=== PATIENT | female | born 1960 | race Caucasian/White ===

== ENCOUNTER 2018-08-11 17:38 | Emergency (ER) | payer OTHER, SELFPAY ==
[2018-08-11 17:44] VITALS: BP 149/89; PULSE 85; RESP 18; TEMP 36.2; O2SAT 94; BMI 31.4
[2018-08-11 19:15] VITALS: BP 122/76; PULSE 68; RESP 16; O2SAT 99
--- NOTE | 2018-08-11 19:23 | PC.NURSE ---
Pt reports at work touch a piece of clothing with cat hair on uniform. Reports feeling instantly itchy and sob breath. Reports a hive showed up under left eye. Then reports her eyes started to burn and itch and so did the tip of her ears. She states becoming flushed and sweaty. Tried to wash off her hands and face. Then decide to use her epi pen.
[2018-08-11] MEDS: predniSONE 20 MG TABLET 60 MG PO (19:50)
[2018-08-11] MEDS: diphenhydrAMINE 25 MG TABLET 50 MG PO (19:51)
--- NOTE | 2018-08-11 20:16 | ED.ALLEREA ---
HPI - Allergic Reaction <IRA Baugh-BC - Last Filed: 08/11/18 21:20> General Chief complaint: Allergic Reaction Stated complaint: Self administer Epi, @ approx 16:45 Time Seen by Provider: 08/11/18 19:28 Source: patient and family Mode of arrival: ambulatory Limitations: no limitations History of Present Illness HPI narrative: The patient is a 58-year-old female nonsmoker with history of multiple allergies who presents after using her EpiPen earlier today. She states that she was exposed to iodine through cat urine on clothing at work. She felt ?prickly under her skin,itching and burning of her eyes. She felt like she cannot breathe very well. She denies any swelling of her lips base for tongue. She administered her EpiPen into her right thigh at 4:45 p.m. she has not taken any Benadryl or anything else since. She denies any current shortness of breath. She states she had a hive, but it went away she presents requesting a refill of her EpiPen. Related Data Home Medications Medication Instructions Recorded Confirmed EpinephrineSnap-V 0.3 mg IM PRN PRN 08/11/18 08/11/18 Previous Rx's Medication Instructions Recorded prednisone 50 mg PO DAILY #5 tab 08/11/18 Allergies Allergy/AdvReac Type Severity Reaction Status Date / Time cat dander Allergy Severe Hives Verified 08/11/18 17:52 Iodine and Iodide Containing Allergy Severe Anaphylaxis Verified 08/11/18 17:52 Produc shellfish derived Allergy Severe Anaphylaxis Verified 08/11/18 17:52 Review of Systems <MARÍA Baugh - Last Filed: 08/11/18 21:20> Constitutional Denies body ache(s), Denies chills, Denies fatigue, Denies fever(s) and Denies headache(s) Eyes Reports as per HPI ENT Ears, Nose, Mouth, and Throat: Reports as per HPI and Denies headache(s) Cardiovascular Denies chest pain, Denies syncope, Denies rapid heart rate, Denies edema, Denies radiating jaw, neck or arm pain and Denies palpitations Respiratory Reports as per HPI Gastrointestinal Gastrointestinal: Denies abdominal pain, Denies bloating, Denies constipation, Denies cramping, Denies dyspepsia, Denies diarrhea, Denies nausea and Denies vomiting Genitourinary Denies urinary frequency Musculoskeletal Reports system reviewed and no additional complaints, except as docu and Reports as per HPI Integumentary/Breasts Reports as per HPI Neurologic Denies syncope and Denies headache(s) Endocrine Denies fatigue and Denies palpitations PFSH <MARÍA Baugh - Last Filed: 08/11/18 21:20> Medical History (Updated 08/11/18 @ 21:18 by MARÍA Baugh) Palpitations (Acute) Social History Smoking Status: Never smoker Social History Smoking Status: Never smoker Exam <MARÍA Baugh - Last Filed: 08/11/18 21:20> Initial Vital Signs Initial Vital Signs: Vital Signs Temperature 97.1 F L 08/11/18 17:44 Pulse Rate 85 08/11/18 17:44 Respiratory Rate 18 08/11/18 17:44 Blood Pressure 149/89 H 08/11/18 17:44 Pulse Oximetry 94 08/11/18 17:44 Const General: cooperative and well developed Nutritional Appearance: well nourished Orientation: alert, awake, oriented x3 and not confused [facility] Head: normocephalic and atraumatic Ears: external ears normal and TM's normal bilaterally Nose: external nose normal and No nasal discharge Face and sinus: sinuses nontender, face symmetric, no sinus tenderness and No dry mucous membranes Mouth: oral mucosae normal, lip normal, tongue normal, No oropharynx normal, moist mucous membranes, No mucous membranes abnormal, No drooling, No muffled voice and No tongue abnormal Teeth and gingiva: dentition normal Throat: tonsils normal and uvula midline Neck Neck: normal visual inspection Resp Effort & Inspection: normal respiratory effort, able to speak in complete sentences, normal respiratory pattern, no audible wheezes, no cough, respiratory effort not decreased, no grunting, not labored, no nasal flaring, no pursed lip breathing, no respiratory distress, no retractions and no tracheal deviation Auscultation: clear to auscultation bilaterally, no crackles, no rales, no rhonchi and no wheezes Cardio Rhythm: regular rhythm GI Palpation: soft Auscultation: normal bowel sounds Skin General: no rashes or lesions noted Lesions: no lesions Rashes: no rashes Trauma: no lacerations or abrasions Wounds: no wounds Neuro General: alert, oriented x3, gait normal and no focal motor deficits Speech: speech normal <Levy Thomas DO - Last Filed: 08/12/18 01:08> Initial Vital Signs Initial Vital Signs: Vital Signs Temperature 97.1 F L 08/11/18 17:44 Pulse Rate 85 08/11/18 17:44 Respiratory Rate 18 08/11/18 17:44 Blood Pressure 149/89 H 08/11/18 17:44 Pulse Oximetry 94 08/11/18 17:44 Course <MARÍA Bauhg - Last Filed: 08/11/18 21:20> Orders Ordered: Discontinued Medications Diphenhydramine HCl (Benadryl) 50 mg PO NOW ONE Stop: 08/11/18 19:37 Last Admin: 08/11/18 19:51 Dose: 50 mg Prednisone (Deltasone) 60 mg PO NOW ONE Stop: 08/11/18 19:37 Last Admin: 08/11/18 19:50 Dose: 60 mg Vital Signs - 8 hr 08/11/18 17:44 08/11/18 19:15 08/11/18 20:54 Temperature 97.1 F L Pulse Rate 85 68 66 Respiratory Rate 18 16 15 Blood Pressure 149/89 H 118/78 Blood Pressure [Right Arm] 122/76 Pulse Oximetry 94 99 98 <Levy Thomas DO - Last Filed: 08/12/18 01:08> Orders Ordered: Discontinued Medications Diphenhydramine HCl (Benadryl) 50 mg PO NOW ONE Stop: 08/11/18 19:37 Last Admin: 08/11/18 19:51 Dose: 50 mg Prednisone (Deltasone) 60 mg PO NOW ONE Stop: 08/11/18 19:37 Last Admin: 08/11/18 19:50 Dose: 60 mg Vital Signs - 8 hr 08/11/18 17:44 08/11/18 19:15 08/11/18 20:54 Temperature 97.1 F L Pulse Rate 85 68 66 Respiratory Rate 18 16 15 Blood Pressure 149/89 H 118/78 Blood Pressure [Right Arm] 122/76 Pulse Oximetry 94 99 98 MDM - Allergic Reaction <MARÍA Baugh - Last Filed: 05/03/19 21:20> MDM Narrative Medical decision making narrative: The patient is a 58-year-old female who presents with chief complaint of allergic reaction. She self administered an EpiPen. She has no abnormalities on exam, is hemodynamically stable. She is monitored and given Benadryl as well as prednisone. I did discharge her with a refill of her EpiPen as well as a burst of prednisone. I encouraged her to follow up with her primary care provider if needed. Crutches to come back to emergency department for any acute concerns such as shortness of breath, or pharyngeal swelling etc. Patient has no questions or concerns upon discharge. Discharge Plan Departure Patient Disposition: Home Clinical Impression: Allergic reaction Qualifiers: Encounter type: initial encounter Qualified Code(s): T78.40XA - Allergy, unspecified, initial encounter Discharge Date/Time: 08/11/18 20:55 Interventions: ED Discharge Assessment Last Done: 08/11/18 20:54 Instructions: DI for General Allergic Reactions Activity Restrictions/Additional Instructions: I have given you a refill of her EpiPen. I have also given you a burst of steroids. You can also take Benadryl and/or Pepcid if needed. Please follow up with primary care physician as soon as possible. Please try to avoid your allergens and carry an EpiPen if needed at all times. Please come back to emergency department for any acute concerns. Prescriptions: New prednisone 50 mg tablet 50 mg PO DAILY Qty: 5 RF: 0 No Action EpinephrineSnap-V 0.3 mg IM PRN PRN (Reason: Allergic Reaction) RF: 0 <Levy Thomas DO - Last Filed: 08/12/18 01:08> [facility] ED Attending Fauzia Attestation: I was immediately available in the department for consultation. Documentation has been reviewed. I agree with assessment and plan.
[2018-08-11 20:54] VITALS: BP 118/78; PULSE 66; RESP 15; O2SAT 98
== END 2018-08-11 20:55 | disposition home or self-care (01) ==
PROVIDERS: Emergency Provider Nurse Practitioner Family
DX: T78.40XA Allergy, unspecified, initial encounter (principal); Y99.0 Civilian activity done for income or pay
CPT/HCPCS: 99282; 99283